=== PATIENT | female | born 1995 | race Caucasian/White ===

== ENCOUNTER 2018-07-07 09:30 | Emergency (ER) | payer OTHER ==
[2018-07-07 09:32] VITALS: Ht 157.5 cm
[2018-07-07 10:37] VITALS: BP 126/65
== END 2018-07-07 10:39 | disposition home or self-care (01) ==
LOC: ED 09:30
DX: O23.43 Unspecified infection of urinary tract in pregnancy, third trimester (principal); R10.2 Pelvic and perineal pain; Z3A.36 36 weeks gestation of pregnancy